=== PATIENT | male | born 1955 | race African-American/Black ===

== ENCOUNTER 2019-11-01 12:07 | Observation (INO) | payer OTHER ==
--- NOTE | 2019-11-01 12:27 | EKG ---
Test Date: 2019-11-01 Test Time: 12:18:56 Save All Operator: LUCILLE MEASUREMENT RESULTS: Intervals: Rate: 141 AL: QRSD: 108 QT: 264 QTc: 404 [place]: P: 237 AL: QRS: 17 T: 78 INTERPRETIVE STATEMENTS: Atrial flutter with 2:1 AV conduction Minimal voltage criteria for LVH, may be normal variant Junctional ST depression, probably normal Abnormal ECG No previous ECG available for comparison Electronically Signed On 11-01-19 12:26:47 CHROME CLEANER by Corby Silva
[2019-11-01] MEDS ORDERED: METOPROLOL TARTRATE 5 MG/5 ML INJ IV ONE (12:37)
[2019-11-01 12:41] LABS: Absolute Lymphocytes (CBC) 1.3 K/uL (0.7-4.9); Basophils % 0.5 % (0-1.3); Hematocrit 45.8 % (39.6-49.0); Lymphocytes % 13.2 % (15.3-44.8); MPV 8.5 fL (7.6-11.3); Protime INR 1.11; RBC Red Blood Cell Count 5.25 M/uL (4.33-5.43)
[2019-11-01 12:58] LABS: ALT/SGPT 22 U/L (12-78); AST/SGOT 7 U/L (15-37); Albumin 3.8 g/dL (3.4-5.0); Alkaline Phosphatase 116 U/L (45-117); BUN Blood Urea Nitrogen 17 mg/dL (7-18); Bicarbonate 34 mmol/L (21-32); Bilirubin Direct 0.3 mg/dL (0-0.2); Bilirubin Total 0.9 mg/dL (0.2-1.0); Glucose Level 108 mg/dL (74-106); Magnesium 2.3 mg/dL (1.8-2.4); NT PRO-BNP 1389 pg/mL (<125); Potassium 4.1 mmol/L (3.5-5.1); Sodium Level 143 mmol/L (136-145); Troponin (Emerg Dept Use Only) < 0.02 ng/mL (0.0-0.045)
--- NOTE | 2019-11-01 13:02 | RAD REPORT ---
EXAM DESCRIPTION: Eva Single View11/01/2019 12:37 pm CLINICAL HISTORY: Palpitations COMPARISON: None FINDINGS: Lung bases are mildly hazy. Remainder lungs appear clear. The heart is mildly to moderatel y enlarged Postsurgical changes involve the chest. IMPRESSION: Lung bases are mildly hazy which may be secondary to small pleural effusions or mild ate lectasis.
--- NOTE | 2019-11-01 14:34 | EDPHYS ---
Physician Documentation [facility] Name: Eileen Lucero Age: 63 yrs Sex: Male : 1955 Arrival Date: 11/01/2019 Time: 12:09 Bed 3 Private MD: ED Physician Wesley Julien HPI: 11/01 16:54 This 63 yrs old Black Male presents to ER via Ambulatory with complaints of Irregular kdr Pulse. 16:54 The patient presents with a history of irregular heart beat, heart racing. kdr 16:54 The patient has been feeling poorly for the past three days. he went to his doctor and kdr was noted to have a fast heart rate and was sent to the ED. In the ED, it is noted that his HR was indeed fast and irregular. The EKG reveals A-fib/flutter with RVR. He was slightly hypertensive so no need for emergent cardioversion. Onset: The symptoms/episode began/occurred gradually, 3 day(s) ago. Severity of symptoms: At their worst the symptoms were mild moderate in the emergency department the symptoms are unchanged. The patient has not experienced similar symptoms in the past. The patient has not recently seen a physician. Historical: - Allergies: 12:22 No Known Allergies; ss - Home Meds: 12:22 Metoprolol Tartrate Oral [Active]; amlodipine oral [Active]; Simvastatin Oral [Active]; ss Furosemide Oral [Active]; aspirin 81 mg Oral chew 1 tab once daily [Active]; unknown diabetes medication [Active]; - PMHx: 12:22 Myocardial infarction; kidney disease; Diabetes - NIDDM; Hyperlipidemia; Hypertension; ss lung ca; COPD; CAD; - PSHx: 12:22 triple bypass; lung tumor removed; Cholecystectomy; ss - Immunization history:: Adult Immunizations up to date. - Coronavirus screen:: The patient has NOT traveled to [place], [place], or [place] in the past 14 days. The patient has NOT had contact with known/suspected case of Coronavirus?. - Social history:: Smoking status: Patient denies any tobacco usage or history of. Patient/guardian denies using alcohol, street drugs. - Ebola Screening: : Patient negative for fever greater than or equal to 101.5 degrees Fahrenheit, and additional compatible Ebola Virus Disease symptoms Patient denies exposure to infectious person Patient denies travel to an Ebola-affected area in the 21 days before illness onset No symptoms or risks identified at this time. ROS: 16:54 Constitutional: Negative for fever, chills, and weight loss, Eyes: Negative for injury, kdr pain, redness, and discharge - the patient is generally weak and feeling poorly Neck: Negative for injury, pain, and swelling, Respiratory: Negative for shortness of breath, cough, wheezing, and pleuritic chest pain, Abdomen/GI: Negative for abdominal pain, nausea, vomiting, diarrhea, and constipation, Back: Negative for injury and pain, : Negative for injury, bleeding, discharge, and swelling, MS/Extremity: Negative for injury and deformity, Skin: Negative for injury, rash, and discoloration, Neuro: Negative for headache, weakness, numbness, tingling, and seizure activity. Psych: Negative for depression, anxiety, suicide ideation, homicidal ideation, and hallucinations, Allergy/Immunology: Negative for hives, rash, and allergies, Endocrine: Negative for neck swelling, polydipsia, polyuria, polyphagia, and marked weight changes, Hematologic/Lymphatic: Negative for swollen nodes, abnormal bleeding, and unusual bruising. 16:54 Cardiovascular: Positive for palpitations, Negative for chest pain, edema, orthopnea, paroxysmal nocturnal dyspnea. Exam: 16:54 Constitutional: This is a well developed, well nourished patient who is awake, alert, kdr and in no acute distress. Head/Face: Normocephalic, atraumatic. Eyes: Pupils equal round and reactive to light, extra-ocular motions intact. Lids and lashes normal. Conjunctiva and sclera are non-icteric and not injected. Cornea within normal limits. Periorbital areas with no swelling, redness, or edema. Neck: Trachea midline, no thyromegaly or masses palpated, and no cervical lymphadenopathy. Supple, full range of motion without nuchal rigidity, or vertebral point tenderness. No Meningismus. Chest/axilla: Normal chest wall appearance and motion. Nontender with no deformity. No lesions are appreciated. Respiratory: Lungs have equal breath sounds bilaterally, clear to auscultation and percussion. No rales, rhonchi or wheezes noted. No increased work of breathing, no retractions or nasal flaring. Abdomen/GI: Soft, non-tender, with normal bowel sounds. No distension or tympany. No guarding or rebound. No evidence of tenderness throughout. Back: No spinal tenderness. No costovertebral tenderness. Full range of motion. Skin: Warm, dry with normal turgor. Normal color with no rashes, no lesions, and no evidence of cellulitis. MS/ Extremity: Pulses equal, no cyanosis. Neurovascular intact. Full, normal range of motion. Neuro: Awake and alert, GCS 15, oriented to person, place, time, and situation. Cranial nerves II-XII grossly intact. Motor strength 5/5 in all extremities. Sensory grossly intact. Cerebellar exam normal. Normal gait. Psych: Awake, alert, with orientation to person, place and time. Behavior, mood, and affect are within normal limits. 16:54 Cardiovascular: Rate: tachycardic, Rhythm: irregularly irregular, Pulses: no pulse deficits are appreciated, Heart sounds: murmur, systolic, grade 2 over 6, Edema: is not appreciated, JVD: is not appreciated. Vital Signs: 12:21 BP 142 / 107; Pulse 141; Resp 18 S; Pulse Ox 100% on 2 lpm NC; Pain 7/10; ca1 12:38 Weight 97.07 kg (R); Height 6 ft. 1 in. (185.42 cm) (R); ca1 12:45 BP 119 / 93; Pulse 118; Resp 23; Pulse Ox 100% on 2 lpm NC; ca1 12:50 BP 123 / 79; Pulse 112; Resp 22; Pulse Ox 100% on 2 lpm NC; ca1 13:30 BP 122 / 81; Pulse 108; Resp 22; Pulse Ox 100% on 2 lpm NC; ca1 14:22 BP 130 / 74; Pulse 97; Resp 19 S; Pulse Ox 100% on 2 lpm NC; ca1 15:13 BP 136 / 97; Pulse 97; Resp 21; Temp 97.6(O); Pulse Ox 100% on 2 lpm NC; ca1 12:38 Body Mass Index 28.23 (97.07 kg, 185.42 cm) ca1 MDM: 14:33 Patient medically screened. kdr 17:01 Data reviewed: vital signs, nurses notes, lab test result(s), EKG, radiologic studies. kdr Counseling: I had a detailed discussion with the patient and/or guardian regarding: the historical points, exam findings, and any diagnostic results supporting the discharge/admit diagnosis, radiology results, the need for further work-up and treatment in the hospital. Physician consultation: David Oliva DO regarding admission, and will see patient in ED, shortly. Admission orders: after a detailed discussion of the patient's condition and case, the admit orders are written by me. 11/01 12:25 Order name: Basic Metabolic Panel [facility] 11/01 12:25 Order name: CBC with Diff [facility] 11/01 12:25 Order name: LFT's [facility] 11/01 12:25 Order name: Magnesium [facility] 11/01 12:25 Order name: NT PRO-BNP [facility] 11/01 12:25 Order name: PT-INR [facility] 11/01 12:25 Order name: Troponin (emerg Dept Use Only) [facility] 11/01 12:43 Order name: CBC with Automated Diff [facility] 11/01 12:43 Order name: Protime (+INR) [facility] 11/01 12:59 Order name: Basic Metabolic Panel [facility] 11/01 12:59 Order name: Liver (Hepatic) Function [facility] 11/01 12:59 Order name: Troponin (Emerg Dept Use Only) [facility] 11/01 12:59 Order name: NT PRO-BNP [facility] 11/01 12:59 Order name: Magnesium [facility] 11/01 12:25 Order name: XRAY Chest (1 view) [facility] 11/01 12:25 Order name: EKG; Complete Time: 12:26 kdr 11/01 12:25 Order name: Cardiac monitoring; Complete Time: 12:32 kdr 11/01 12:25 Order name: EKG - Nurse/Tech; Complete Time: 12:32 kdr 11/01 12:25 Order name: IV Saline Lock; Complete Time: 12:32 kdr 11/01 12:25 Order name: Labs collected and sent; Complete Time: 12:32 kdr 11/01 12:25 Order name: O2 Per Protocol; Complete Time: 12:32 kdr 11/01 12:25 Order name: O2 Sat Monitoring; Complete Time: 12:32 kdr 11/01 13:06 Order name: RAD [facility] 11/01 13:47 Order name: EKG; Complete Time: 13:48 sg 11/01 13:52 Order name: EKG; Complete Time: 13:53 ca1 11/01 13:52 Order name: EKG - Nurse/Tech; Complete Time: 13:52 ca1 Administered Medications: 12:37 Drug: Lopressor 5 mg Route: IVP; Site: right antecubital; ca1 12:45 Drug: Lopressor 5 mg Route: IVP; Site: right antecubital; ca1 12:50 Drug: Lopressor 5 mg Route: IVP; Site: right antecubital; ca1 13:49 Follow up: Response: No adverse reaction; Cardiac rhythm changed ca1 Disposition: 11/01/19 14:33 Hospitalization ordered by David Oliva for Inpatient Admission. Preliminary diagnosis is Atrial fibrillation and flutter. - Bed requested for Telemetry/MedSurg (Inpatient). - Status is Inpatient Admission. ca1 - Condition is Fair. - Problem is new. - Symptoms have improved. Signatures: Dispatcher [employer] EDMS Ani Powers Kevin, MD MD [facility] Sharon Barnes RN RN ss Faith Mccarty RN RN ca1 Corrections: (The following items were deleted from the chart) 14:59 14:33 Hospitalization Ordered by David Oliva DO for Inpatient Admission. Preliminary bd diagnosis is Atrial fibrillation and flutter. Bed requested for Telemetry/MedSurg (Inpatient). Status is Inpatient Admission. Condition is Fair. Problem is new. Symptoms have improved. kdr 15:32 14:59 11/01/2019 14:33 Hospitalization Ordered by David Oliva DO for Inpatient ca1 Admission. Preliminary diagnosis is Atrial fibrillation and flutter. Bed requested for Telemetry/MedSurg (Inpatient). Status is Inpatient Admission. Condition is Fair. Problem is new. Symptoms have improved. bd
--- NOTE | 2019-11-01 14:34 | ER ---
Nurse's Notes [facility] Name: Eileen Lucero Age: 63 yrs Sex: Male : 1955 Arrival Date: 11/01/2019 Time: 12:09 Bed 3 Private MD: Diagnosis: Atrial fibrillation and flutter Presentation: 11/01 12:18 Presenting complaint: Patient states: sent from his doctor because his heart rate was ss high. c/o SOB and chest pains. Transition of care: patient was not received from another setting of care. Onset of symptoms was October 29, 2019. Risk Assessment: Do you want to hurt yourself or someone else? Patient reports no desire to harm self or others. Initial Sepsis Screen: Does the patient meet any 2 criteria? No. Patient's initial sepsis screen is negative. Does the patient have a suspected source of infection? No. Patient's initial sepsis screen is negative. Care prior to arrival: None. 12:18 Method Of Arrival: Ambulatory ss 12:18 Acuity: ZO 2 ss Triage Assessment: 12:22 General: Appears in no apparent distress. comfortable, Behavior is calm, cooperative, ss appropriate for age. Pain: Complains of pain in chest Pain currently is 7 out of 10 on a pain scale. Cardiovascular: Reports chest pain, shortness of breath. Historical: - Allergies: 12:22 No Known Allergies; ss - Home Meds: 12:22 Metoprolol Tartrate Oral [Active]; amlodipine oral [Active]; Simvastatin Oral [Active]; ss Furosemide Oral [Active]; aspirin 81 mg Oral chew 1 tab once daily [Active]; unknown diabetes medication [Active]; - PMHx: 12:22 Myocardial infarction; kidney disease; Diabetes - NIDDM; Hyperlipidemia; Hypertension; ss lung ca; COPD; CAD; - PSHx: 12:22 triple bypass; lung tumor removed; Cholecystectomy; ss - Immunization history:: Adult Immunizations up to date. - Coronavirus screen:: The patient has NOT traveled to [place], [place], or [place] in the past 14 days. The patient has NOT had contact with known/suspected case of Coronavirus?. - Social history:: Smoking status: Patient denies any tobacco usage or history of. Patient/guardian denies using alcohol, street drugs. - Ebola Screening: : Patient negative for fever greater than or equal to 101.5 degrees Fahrenheit, and additional compatible Ebola Virus Disease symptoms Patient denies exposure to infectious person Patient denies travel to an Ebola-affected area in the 21 days before illness onset No symptoms or risks identified at this time. Screenin:38 Abuse screen: Denies threats or abuse. Denies injuries from another. Nutritional ca1 screening: No deficits noted. Tuberculosis screening: No symptoms or risk factors identified. Fall Risk IV access (20 points). Assessment: 12:38 General: Appears in no apparent distress. comfortable, Behavior is calm, cooperative, ca1 appropriate for age, Reports feeling ill for 2-3 days. Pain: Denies pain. Pain does not radiate. Pain began. Neuro: Level of Consciousness is awake, alert, obeys commands, Oriented to person, place, time, situation, Appropriate for age. Cardiovascular: Heart tones S1 S2 present Capillary refill < 3 seconds Patient's skin is warm and dry. Pulses are all present. Rhythm is atrial fibrillation. Respiratory: Reports shortness of breath at rest Airway is patent Respiratory effort is even, unlabored, Respiratory pattern is regular, symmetrical, Breath sounds are clear bilaterally. GI: Abdomen is round non-distended, Bowel sounds present X 4 quads. Abd is soft and non tender X 4 quads. : No signs and/or symptoms were reported regarding the genitourinary system. EENT: No signs and/or symptoms were reported regarding the EENT system. Derm: Skin is intact, is healthy with good turgor, Skin is normal. Musculoskeletal: Circulation, motion, and sensation intact. Capillary refill < 3 seconds. 13:30 Reassessment: Patient appears in no apparent distress at this time. Patient and/or ca1 family updated on plan of care and expected duration. Pain level reassessed. Patient is alert, oriented x 3, equal unlabored respirations, skin warm/dry/pink. 14:22 Reassessment: Patient appears in no apparent distress at this time. Patient and/or ca1 family updated on plan of care and expected duration. Pain level reassessed. Patient is alert, oriented x 3, equal unlabored respirations, skin warm/dry/pink. 14:31 Reassessment: Dr. Oliva at bedside. ca1 15:15 Reassessment: Patient appears in no apparent distress at this time. Patient is alert, ca1 oriented x 3, equal unlabored respirations, skin warm/dry/pink. Vital Signs: 12:21 BP 142 / 107; Pulse 141; Resp 18 S; Pulse Ox 100% on 2 lpm NC; Pain 7/10; ca1 12:38 Weight 97.07 kg (R); Height 6 ft. 1 in. (185.42 cm) (R); ca1 12:45 BP 119 / 93; Pulse 118; Resp 23; Pulse Ox 100% on 2 lpm NC; ca1 12:50 BP 123 / 79; Pulse 112; Resp 22; Pulse Ox 100% on 2 lpm NC; ca1 13:30 BP 122 / 81; Pulse 108; Resp 22; Pulse Ox 100% on 2 lpm NC; ca1 14:22 BP 130 / 74; Pulse 97; Resp 19 S; Pulse Ox 100% on 2 lpm NC; ca1 15:13 BP 136 / 97; Pulse 97; Resp 21; Temp 97.6(O); Pulse Ox 100% on 2 lpm NC; ca1 12:38 Body Mass Index 28.23 (97.07 kg, 185.42 cm) ca1 ED Course: 12:09 Patient arrived in ED. ag5 12:10 Wesley Julien MD is Attending Physician. kdr 12:19 Triage completed. ss 12:20 No provider procedures requiring assistance completed. Initial lab(s) drawn, by mn, ca1 held in ED. Inserted saline lock: 20 gauge in right antecubital area, using aseptic technique. Blood collected. Oxygen administration via nasal cannula \T\ 2L/min. 12:22 Arm band placed on left wrist. Patient placed in an exam room, on a stretcher, on ss oxygen, on rn cardiac rehab, on pulse oximetry. EKG completed in triage. Results shown to MD. 12:28 EKG done, by refractory technician. reviewed by Wesley Julien MD. at1 12:32 Faith Mccarty, ALEXANDER is Primary Nurse. ca1 12:38 Patient has correct armband on for positive identification. Placed in gown. Bed in low ca1 position. Call light in reach. Side rails up X2. equipment monitor phototypesetting on. Pulse ox on. NIBP on. Warm blanket given. 14:06 EKG done, by refractory technician. reviewed by Wesley Julien MD. at1 14:19 David Oliva DO is Hospitalizing Provider. kdr 15:14 Patient admitted, IV remains in place. ca1 Administered Medications: 12:37 Drug: Lopressor 5 mg Route: IVP; Site: right antecubital; ca1 12:45 Drug: Lopressor 5 mg Route: IVP; Site: right antecubital; ca1 12:50 Drug: Lopressor 5 mg Route: IVP; Site: right antecubital; ca1 13:49 Follow up: Response: No adverse reaction; Cardiac rhythm changed ca1 Outcome: 14:33 Decision to Hospitalize by Provider. kdr 15:14 Admitted to Tele accompanied by tech, family with patient, via stretcher, room 401, ca1 with chart, Report called to ALEXANDER Guthrie 15:14 Condition: stable 15:14 Instructed on the need for admit. 15:32 Patient left the ED. ca1 Signatures: Wesley Julien MD MD kdr Sharon Barnes RN RN ss Elham Bella, marble finisher EKG Tat1 AcobFaith RN RN ca1 Lani Mclaughlin ag5 Corrections: (The following items were deleted from the chart) 12:21 12:20 Patient maintains SpO2 saturation greater than 95% on room air. ca1 ca1 13:02 12:38 Cardiovascular: Heart tones S1 S2 present Capillary refill < 3 seconds Patient's ca1 skin is warm and dry. Pulses are all present. Rhythm is sinus tachycardia ca1 13:31 12:21 BP 142 / 107; Pulse 141bpm; Resp 18bpm; Spontaneous; Pulse Ox 100% RA; Pain 7/10; ca1 ca1 13:31 12:45 BP 119 / 93; Pulse 118bpm; Resp 23bpm; Pulse Ox 100% RA; ca1 ca1 13:31 12:50 BP 123 / 79; Pulse 112bpm; Resp 22bpm; Pulse Ox 100% RA; ca1 ca1 13:31 13:30 BP 122 / 81; Pulse 108bpm; Resp 22bpm; Pulse Ox 100% RA; ca1 ca1 15:14 14:22 BP 130 / 74; Pulse 97bpm; Resp 19bpm; Spontaneous; Pulse Ox 100% RA; ca1 ca1
[2019-11-01] MEDS ORDERED: ONDANSETRON 4 MG/2 ML VIAL IV PRN (15:40)
[2019-11-01] MEDS ORDERED: ACETAMINOPHEN 500 MG TAB PO PRN (15:40)
--- NOTE | 2019-11-01 15:52 | P.HP ---
Certification for Inpatient Patient admitted to: Observation With expected LOS: <2 Midnights Patient will require the following post-hospital care: None Practitioner: I am a practitioner with admitting privileges, knowledge of patient current condition, hospital course, and medical plan of care. Services: Services provided to patient in accordance with Admission requirements found in Title 42 Section 412.3 of the Code of Federal Regulations Patient History Date of Service: 11/01/19 Primary Care Provider: Dr. James([place]); Cardiology-Dr. Leone([place]); Nephrology-Dr. Mckeon Reason for admission: Weakness, chest pain History of Present Illness: 63-year-old male presented to the emergency room with weakness and shortness of breath. Patient with history of CAD with prior CABG, diabetes , and hypertension. Patient reported increasing weakness over the past week. He also has been noticing some chest pain. He denies any nausea, vomiting, palpitations. He reports no fever or chills. Due to the increasing weakness patient came to the ER for further evaluation. In the ER patient was evaluated. Patient found to have atrial fibrillation with flutter. Rate above 120. Patient was given IV metoprolol with improvement. Initial cardiac enzymes unremarkable. Chest x-ray appears stable. Hemoglobin 14.9, white count 9.8. Sodium 143, potassium 4.1 creatinine 1.3 with a GFR 68. Patient admitted for further evaluation and treatment. When I saw the patient ER, he appeared stable. He denied any significant chest pain at that time. No prior history of atrial fibrillation. Allergies No Known Allergies Allergy (Unverified 11/01/19 15:00) Home medications list reviewed: Yes - Past Medical/Surgical History Has patient received pneumonia vaccine in the past: Yes Diabetic: Yes -: Hypertension -: Diabetes mellitus type 2 non-insulin dependent -: CAD with prior CABG x3 vessel -: CABG x3 vessel -: Lung tumor removed-benign right-sided -: Cholecystectomy Psychosocial/ Personal History: Patient is . - Family History Mother -: Heart disease, Hypertension - Social History Smoking Status: Never smoker Alcohol use: No CD- Drugs: No Caffeine use: Yes Place of Residence: Home Review of Systems General: Weakness, As per HPI Eyes: Unremarkable ENT: Unremarkable Respiratory: Unremarkable Cardiovascular: Chest Pain, As per HPI Genitourinary: Unremarkable Musculoskeletal: Pedal edema, As per HPI Integumentary: Unremarkable Neurological: Unremarkable Lymphatics: Unremarkable Physical Examination - Vital Signs Temperature: 97.6 F Blood Pressure: 136/97 Pulse: 97 Respirations: 21 - Physical Exam General: Alert, In no apparent distress, Oriented x3, Cooperative HEENT: Atraumatic, Normocephalic, Mucous membr. moist/pink Neck: Supple Respiratory: Clear to auscultation bilaterally, Normal air movement Cardiovascular: Irregular heart rate/rhythm (Atrial fibrillation rate around 100 ) Gastrointestinal: Normal bowel sounds, Non-distended, No tenderness, No masses, No rebound, No guarding Musculoskeletal: No tenderness, No warmth Integumentary: No tenderness/swelling, No erythema, No warmth, No cyanosis Neurological: Normal speech, Normal strength at 5/5 x4 extr, Normal tone, Normal affect - Studies Laboratory Data (last 24 hrs) 11/01/19 12:28: PT 13.0 H, INR 1.11 11/01/19 12:28: WBC 9.8, Hgb 14.9, Hct 45.8, Plt Count 283 11/01/19 12:28: Sodium 143, Potassium 4.1, BUN 17, Creatinine 1.30, Glucose 108 H, Magnesium 2.3, Total Bilirubin 0.9, AST 7 L, ALT 22, Alkaline Phosphatase 116 Assessment and Plan - Plan Impression: Weakness, chest pain secondary to new onset Atrial fibrillation HTN DM Type 2 non insulin dependent CAD with hx of CABG Chronic renal disease stage II Plan: Weakness, chest pain secondary to new onset Atrial fibrillation: Patient will be admitted. Will monitor closely on telemetry and cardiac enzymes. Spoke to Cardiology. Will start Betapace 80 mg BID and Eliquis 5 mg BID. Will check ECHO. Await further cardiology recommendations. Hopefully patient will convert. If so patient can likely be discharged tomorrow on Betapace and Eliquis. Will teach on atrial fibrillation. Will continue to monitor closely. HTN: Will hold metoprolol at this time. Patient may require other medication. Will monitor closely. DM Type 2 non insulin dependent: Continue Accu-Cheks and sliding scale. Will check A1c. Obtain home medication. CAD with hx of CABG: Will monitor closely. Obtain home medication. Chronic renal disease stage II: Overall stable peer will monitor closely. Discharge Plan: Home Plan to discharge in: 24 Hours - Advance Directives Does patient have a Living Will: No Does patient have a Durable POA for Healthcare: No - Code Status/Comfort Care Code Status Assessed: Yes (Patient is full code) Time Spent Managing Pts Care (In Minutes): 55
[2019-11-01] MEDS: INSULIN -REGULAR HUMAN 50 UNIT/0.5 ML ML SQ SCH ×2 (16:30→20:45)
[2019-11-01] MEDS: SOTALOL HCL 80 MG TAB PO SCH ×2 (16:40→17:37)
[2019-11-01] MEDS: FUROSEMIDE 40 MG TABLET PO SCH (16:40)
--- NOTE | 2019-11-01 17:17 | EKG ---
Test Date: 2019-11-01 Test Time: 13:52:51 Leather Parts Matcher: LUCILLE MEASUREMENT RESULTS: Intervals: Rate: 105 PA: QRSD: 104 QT: 326 QTc: 430 [place]: P: PA: QRS: 33 T: 42 INTERPRETIVE STATEMENTS: Atrial flutter with variable AV block Abnormal ECG Compared to ECG 11/01/2019 12:18:56 Left ventricular hypertrophy no longer present ST (T wave) deviation no longer present Electronically Signed On 11-01-19 17:16:54 NUCLEAR OPERATIONS SPECIALIST by Corby Silva
[2019-11-01] MEDS: APIXABAN 5 MG TABLET PO SCH (20:39)
[2019-11-01] MEDS ORDERED: ATORVASTATIN 40 MG TAB PO SCH (21:00)
--- NOTE | 2019-11-01 21:39 | CON ---
History Of Present Illness: Mr. Lucero came to the hospital because of his heart beating irregularly. He thought he had the flu, so he saw an emergency room doctor in a [facility], they amilcar gnosed atrial fib and sent him to our emergency room. He had atrial fibrillation, heart rates in the 130s to 150s. His echocardiogram shows normal ejection fraction. No segmental wall motion abnormal ities. Mr. Lucero has a history of coronary bypass surgery in 2002. Since then, there has been no fu rther interventions. He does not have chest pain or shortness of breath. Never diagnosed with atria l fibrillation before nor with congestive heart failure. Medications: Patient's medications have been metoprolol, simvastatin, furosemide, aspirin, and there is an unknown diabetes medicine he takes. He has underlying diabetes, coronary heart disease, renal dysfunction, dyslipidemia, hypertension, history of lung cancer, COPD also. Regarding his lung canc er the tumor was removed, not sure about the present status of his cancer. He has a prior cholecyste ctomy and bypass surgery. Social History: Denies tobacco or alcohol abuse. Physical Examination: Measurements: 6 feet 1 inch, 213 pounds. General: Alert, oriented, pleasant, not in distress. Lungs: Clear. Heart: Irregularly irregular going about 90 beats per minute. Abdomen: Soft. Extremities: Normal. He is in no distress. Vital Signs: Blood pressure 138/87. Telemetry shows atrial flutter with variable AV block, ventricular response rate in the 90s. Impression: Mr. Lucero has recent, but not new onset atrial fibrillation, anticoagulation and rate co ntrol is going on. He is on Betapace. He could be discharged on Betapace tomorrow if that controls his heart rate and be brought back in several weeks to undergo a cardioversion if he is still in atri al fibrillation or atrial flutter. EDITH/TAWNYA Voice ID: [id number] Report ID: [id number]
[2019-11-01 23:10] LABS: CKMB Creatine Kinase MB 1.5 ng/mL (0.3-3.6); Creatine Phosphokinase 124 U/L (39-308); Troponin I < 0.02 ng/mL (0.0-0.045)
[2019-11-02 04:37] LABS: Absolute Lymphocytes (CBC) 0.9 K/uL (0.7-4.9); Basophils % 0.4 % (0-1.3); Hematocrit 43.5 % (39.6-49.0); Lymphocytes % 10.4 % (15.3-44.8); MPV 8.1 fL (7.6-11.3); RBC Red Blood Cell Count 4.91 M/uL (4.33-5.43)
[2019-11-02 04:56] LABS: BUN Blood Urea Nitrogen 17 mg/dL (7-18); Bicarbonate 33 mmol/L (21-32); CKMB Creatine Kinase MB 1.4 ng/mL (0.3-3.6); Creatine Phosphokinase 113 U/L (39-308); Glucose Level 104 mg/dL (74-106); HDL Cholesterol 46 mg/dL (40-60); LDL Cholesterol, Calculated 80 (<130); Magnesium 2.3 mg/dL (1.8-2.4); Potassium 4.2 mmol/L (3.5-5.1); Sodium Level 142 mmol/L (136-145); Troponin I < 0.02 ng/mL (0.0-0.045)
[2019-11-02 05:24] VITALS: BMI 27.8
[2019-11-02] MEDS: SOTALOL HCL 80 MG TAB PO SCH ×2 (05:41→17:39)
[2019-11-02 05:45] LABS: Urine Appearance CLEAR; Urine Bilirubin NEGATIVE (NEG); Urine Blood NEGATIVE (NEG); Urine Color YELLOW; Urine Glucose NEGATIVE (NEG); Urine Protein NEGATIVE (NEG); Urine Specific Gravity 1.015 (1.005-1.030); Urine pH 5.5 (5.0-7.0)
[2019-11-02 05:47] LABS: Urine Microscopic Reflex NO UMIC
[2019-11-02] MEDS: INSULIN -REGULAR HUMAN 50 UNIT/0.5 ML ML SQ SCH ×3 (07:30→16:30)
[2019-11-02] MEDS: APIXABAN 5 MG TABLET PO SCH (08:17)
[2019-11-02] MEDS: FUROSEMIDE 40 MG TABLET PO SCH ×2 (08:17→17:39)
--- NOTE | 2019-11-02 08:30 | P.DS ---
Admission Date: 11/01/19 Discharge Date: 11/02/19 Primary Care Provider: Dr. James([place]); Cardiology-Dr. Leone([place]); Nephrology-Dr. Mckeon Disposition: ROUTINE DISCHARGE Discharge Condition: GOOD Reason for Admission: Weakness, chest pain Consultations: Cardiology-Dr. Silva Procedures: Impression: Weakness, chest pain secondary to new onset Atrial fibrillation HTN DM Type 2 non insulin dependent CAD with hx of CABG Chronic renal disease stage II Brief History of Present Illness: 63-year-old male presented to the emergency room with weakness and shortness of breath. Patient with history of CAD with prior CABG, diabetes , and hypertension. Patient reported increasing weakness over the past week. He also has been noticing some chest pain. He denies any nausea, vomiting, palpitations. He reports no fever or chills. Due to the increasing weakness patient came to the ER for further evaluation. In the ER patient was evaluated. Patient found to have atrial fibrillation with flutter. Rate above 120. Patient was given IV metoprolol with improvement. Initial cardiac enzymes unremarkable. Chest x-ray appears stable. Hemoglobin 14.9, white count 9.8. Sodium 143, potassium 4.1 creatinine 1.3 with a GFR 68. Patient admitted for further evaluation and treatment. When I saw the patient ER, he appeared stable. He denied any significant chest pain at that time. No prior history of atrial fibrillation. Hospital Course: Patient presented with weakness and chest pain. Cardiac enzymes unremarkable. Patient found to have new onset atrial fibrillation. Patient was seen and evaluated by Cardiology. Patient was started on Betapace and Eliquis. Patient converted back to normal rhythm. Patient stable at discharge. At discharge patient will continue with Betapace 80 mg 1 pill twice daily and Eliquis 5 mg 1 pill twice daily. Education on atrial fibrillation, Betapace and Eliquis will be provided. Recommend follow up with cardiology in 1-2 weeks to follow up this hospitalization. Patient may require future cardioversion if patient remains in atrial fibrillation. Patient with history of hypertension. Patient previously on metoprolol. This has been discontinued since the patient's blood pressure is controlled with changes as above. Recommend to maintain blood pressure less than 140/80. Further can be done by cardiology. Patient with diabetes mellitus type 2 [id number]. A1c 6.2. Patient will continue with his current diabetic medication. Patient with history of chronic renal disease stage II. This appears stable. Recommend future medications to be renally dosed. Recommend no further use of nonsteroidal anti-inflammatories. Patient with history of CAD with prior CABG. This has remained stable. Continue with above changes in medications and recommendations. Patient will follow up with cardiology as an outpatient. Vital Signs/Physical Exam: Temp Pulse Resp BP Pulse Ox 98.1 F 74 16 130/76 92 11/02/19 04:44 11/02/19 08:17 11/02/19 04:44 11/02/19 08:17 11/02/19 05:42 General: Alert, In no apparent distress, Oriented x3, Cooperative HEENT: Atraumatic Neck: Supple Respiratory: Clear to auscultation bilaterally, Normal air movement Cardiovascular: Normal pulses, Regular rate/rhythm Gastrointestinal: Normal bowel sounds, Soft and benign, Non-distended, No tenderness, No masses, No rebound, No guarding Musculoskeletal: No erythema, No tenderness, No warmth Integumentary: No tenderness/swelling, No erythema, No warmth, No cyanosis Neurological: Normal speech, Normal strength at 5/5 x4 extr, Normal tone, Normal affect Laboratory Data at Discharge: WBC 8.3 K/uL (4.3-10.9) D 11/02/19 04:21 Hgb 13.9 g/dL (13.6-17.9) 11/02/19 04:21 Hct 43.5 % (39.6-49.0) 11/02/19 04:21 Plt Count 230 K/uL (152-406) 11/02/19 04:21 PT 13.0 SECONDS (9.5-12.5) H 11/01/19 12:28 INR 1.11 11/01/19 12:28 Sodium 142 mmol/L (136-145) 11/02/19 04:21 Potassium 4.2 mmol/L (3.5-5.1) 11/02/19 04:21 BUN 17 mg/dL (7-18) 11/02/19 04:21 Creatinine 1.11 mg/dL (0.55-1.3) 11/02/19 04:21 Glucose 104 mg/dL (74-106) 11/02/19 04:21 Magnesium 2.3 mg/dL (1.8-2.4) 11/02/19 04:21 Total Bilirubin 0.9 mg/dL (0.2-1.0) 11/01/19 12:28 AST 7 U/L (15-37) L 11/01/19 12:28 ALT 22 U/L (12-78) 11/01/19 12:28 Alkaline Phosphatase 116 U/L (45-117) 11/01/19 12:28 Troponin I < 0.02 ng/mL (0.0-0.045) 11/02/19 04:21 Triglycerides 120 mg/dL (<150) 11/02/19 04:21 Cholesterol 150 mg/dL (<200) 11/02/19 04:21 HDL Cholesterol 46 mg/dL (40-60) 11/02/19 04:21 Cholesterol/HDL Ratio 3.26 11/02/19 04:21 Home Medications: Apixaban [Eliquis] 5 mg PO BID #60 tablet 11/02/19 Sotalol HCl [Betapace*] 80 mg PO BID 6AM 6PM #60 tab 11/02/19 New Medications: Apixaban [Eliquis] 5 mg PO BID #60 tablet Sotalol HCl [Betapace*] 80 mg PO BID 6AM 6PM #60 tab Patient Discharge Instructions: 1. Recommend follow up with PCP in 1-2 weeks to follow up this hospitalization. 2. Patient presented with weakness and chest pain. Cardiac enzymes unremarkable. Patient found to have new onset atrial fibrillation. Patient was seen and evaluated by Cardiology. Patient was started on Betapace and Eliquis. Patient converted back to normal rhythm. Patient stable at discharge. At discharge patient will continue with Betapace 80 mg 1 pill twice daily and Eliquis 5 mg 1 pill twice daily. Education on atrial fibrillation, Betapace and Eliquis will be provided. Recommend follow up with cardiology in 1-2 weeks to follow up this hospitalization. Patient may require future cardioversion if patient remains in atrial fibrillation. 3. Patient with history of hypertension. Patient previously on metoprolol. This has been discontinued since the patient's blood pressure is controlled with changes as above. Recommend to maintain blood pressure less than 140/80. Further can be done by cardiology. 4. Patient with diabetes mellitus type 2 [id number]. A1c 6.2. Patient will continue with his current diabetic medication. 5. Patient with history of chronic renal disease stage II. This appears stable. Recommend future medications to be renally dosed. Recommend no further use of nonsteroidal anti-inflammatories. 6. Patient with history of CAD with prior CABG. This has remained stable. Continue with above changes in medications and recommendations. Patient will follow up with cardiology as an outpatient. Diet: AHA Activity: Fall precautions Time spent managing pt's care (in minutes): 55
[2019-11-02 09:23] VITALS: O2SAT 96
--- NOTE | 2019-11-02 12:32 | ECHO ---
HEIGHT: 6 ft 1 in WEIGHT: 211 lb 0 oz DATE OF STUDY: 11/02/[address]: David Oliva DO 2-DIMENSIONAL: YES M.MODE: YES DOPPLER: YES COLOR FLOW: YES TDS: NO PORTABLE: NO DEFINITY: NO BUBBLE STUDY: NO DIAGNOSIS: ATRIAL FIBRILLATION, HYPERTENSION, CORONARY ARTERY DISEASE CARDIAC HISTORY: CATHERIZATION: YES SURGERY: YES PROSTHETIC VALVE: NO PACEMAKER: NO MEASUREMENTS (cm) DIASTOLIC (NORMALS) SYSTOLIC (NORMALS) IVSd 1.0 (0.6-1.2) LA Diam 4.1 (1.9-4.0) LVEF 67% LVIDd 5.1 (3.5-5.7) LVIDs 3.2 (2.0-3.5) %FS 37% LVPWd 1.2 (0.6-1.2) Ao Diam 3.2 (2.0-3.7) 2 DIMENSIONAL ASSESSMENT: RIGHT ATRIUM: NORMAL LEFT ATRIUM: DILATED RIGHT VENTRICLE: NORMAL LEFT VENTRICLE: NORMAL TRICUSPID VALVE: NORMAL MITRAL VALVE: NORMAL PULMONIC VALVE: NORMAL AORTIC VALVE: NORMAL PERICARDIAL EFFUSION: NONE AORTIC ROOT: NORMAL LEFT VENTRICULAR WALL MOTION: NORMAL DOPPLER/COLOR FLOW: MILD MITRAL AND TRICUSPID REGURGITATION. NORMAL RIGHT VENTRICULAR SYSTOLIC PRESSURE. COMMENTS: NORMAL LEFT VENTRICULAR EJECTION FRACTION. DILATED LEFT ATRIUM. MILD MITRAL AND TRICUSPID REGURGITATION. THE PATIENT WAS IN SINUS RHYTHM DURING THE TEST. TECHNOLOGIST: Sowmya GIRARD
[2019-11-02 13:35] VITALS: TEMP 97.9
[2019-11-02 17:41] VITALS: BP 131/84
--- NOTE | 2019-11-03 09:15 | EKG ---
Test Date: 2019-11-01 Test Time: 20:00:34 Shear Assembler: RT-O MEASUREMENT RESULTS: Intervals: Rate: 71 OK: 174 QRSD: 108 QT: 428 QTc: 465 [place]: P: 75 OK: 174 QRS: -13 T: 35 INTERPRETIVE STATEMENTS: Normal sinus rhythm Possible Left atrial enlargement Incomplete left bundle branch block Nonspecific T wave abnormality Prolonged QT Abnormal ECG Compared to ECG 11/01/2019 13:52:51 Left bundle-branch block now present T-wave abnormality now present Prolonged QT interval now present Atrial flutter no longer present Electronically Signed On 11-03-19 09:15:09 ANIMAL HOSPITAL CLERK by Corby Silva
== END 2019-11-02 18:00 | disposition home or self-care (01) ==
LOC: ER 12:07 → ERHOLD 14:43 → 4TH 15:26
PROVIDERS: ADMIT Family Medicine; ATTEND Family Medicine
DX: I48.91 Unspecified atrial fibrillation (principal); I13.0 Hypertensive heart and chronic kidney disease with heart failure and stage 1 through stage 4 chronic kidney disease, or unspecified chronic kidney disease; I50.32 Chronic diastolic (congestive) heart failure; N18.2 Chronic kidney disease, stage 2 (mild); E11.22 Type 2 diabetes mellitus with diabetic chronic kidney disease; I25.10 Atherosclerotic heart disease of native coronary artery without angina pectoris; Z95.1 Presence of aortocoronary bypass graft
CPT/HCPCS: 93005 ×3; 93306; 85025 ×2; 80048 ×2; 36415; 83735 ×2; 82550 ×2; 85610; 80061; 82947 ×6; 80076; 84443; 81003; 83036; 84484 ×3; 82553 ×2; 84439; 83880; 71045; 96374; 99285; G0378 ×3